=== PATIENT | female | born 1985 | race African-American/Black ===

== ENCOUNTER 2022-08-12 15:41 | Emergency (ER) | payer SELFPAY ==
[~2022-08-12] VITALS: Ht 170.2 cm; Wt 74.8 kg
[2022-08-12 15:54] VITALS: BP 123/66
[2022-08-12 16:40] LABS: BASOPHILS # (AUTO) 0.1 K/uL (0.00-0.22); EOSINOPHILS % (AUTO) 0.7 % (0.0-4.0); HEMATOCRIT 20.8 % (36-48); LYMPHOCYTES # (AUTO) 1.9 K/uL (2.5-16.5); LYMPHOCYTES % (AUTO) 29.1 % (20.5-51.1); MEAN CORPUSCULAR HEMOGLOBIN 20 pg (27-31); MEAN CORPUSCULAR HGB CONC 29 g/dL (33-37); MEAN CORPUSCULAR VOLUME 69.2 fL (80-94); MONOCYTES # (AUTO) 0.4 K/uL (0.8-1.0); MONOCYTES % (AUTO) 6.1 % (1.7-9.3); NEUTROPHILS % (AUTO) 63.1 % (42.2-75.2); PLATELET COUNT (AUTO) 397 K/uL (140-450); RED BLOOD CELL COUNT(AUTO) 3.01 MIL/uL (4.20-5.40); RED CELL DISTRIBUTION WIDTH 24.5 % (11.6-13.7); WHITE BLOOD COUNT (AUTO) 6.4 K/uL (4.8-10.8)
[2022-08-12 16:44] LABS: HEMOGLOBIN 6.1 g/dL (12.0-16.0)
[2022-08-12 16:54] LABS: ALBUMIN 3.7 g/dL (3.4-5.0); ANION GAP 11.4 (8-16); CARBON DIOXIDE 28.8 mmol/L (21-32); CREATININE 0.6 mg/dL (0.6-1.3); POTASSIUM 4.2 mmol/L (3.5-5.1); TOTAL BILIRUBIN 0.5 mg/dL (0.0-1.0)
--- NOTE | 2022-08-12 17:20 | NUR ---
US AT BEDSIDE
--- NOTE | 2022-08-12 19:33 | NUR ---
Pt report given to CYNTHIA Gunn Transfer of care at this time.
--- NOTE | 2022-08-12 20:25 | NUR ---
Consent signed per pt. agreeing to administration of blood. Blood has been type and crossmatched. Blood sent from blood bank. Information on unit of blood checked against patient wristband at bedside by two nurses. All information matches. Patient or responsible constitution party informed of potential complications associated with blood transfusion. Informed of possible transfusion reaction symptoms. Aware of need to notify nurse at once of itching, shortness of breath, flushing, feeling of impending doom, or other symptoms not previously present. Vital signs taken within 5 minutes prior to initiation of transfusion. RN will remain with patient for first 15 minutes of transfusion at which time vital signs will be re-assessed.
[2022-08-12] MEDS ORDERED: [UNRECOGNIZED DRUG - CODE] PO (21:09)
[2022-08-12] MEDS ORDERED: ACET-10509 PO (21:09)
[2022-08-12 21:15] LABS: APPEARANCE,URINE CLEAR (CLEAR); BILIRUBIN,URINE NEGATIVE (NEGATIVE); BLOOD, URINE NEGATIVE (NEGATIVE); COLOR,URINE AMBER (YELLOW); LEUKOCYTE ESTERASE ,URINE NEGATIVE (NEGATIVE); NITRITE, URINE NEGATIVE (NEGATIVE); UGLUCOSE NEGATIVE (NEGATIVE)
[2022-08-12 23:43] VITALS: BP 106/69
--- NOTE | 2022-08-12 23:44 | NUR ---
Patient discharged with v/s stable. Written and verbal after care instructions given and explained. Patient alert, oriented and verbalized understanding of instructions. Ambulatory with steady gait. All questions addressed prior to discharge. ID band removed. Patient advised to follow up with PMD. Rx of TYLENOL PLUS 1 given. Patient educated on indication of medication including possible reaction and side effects. Opportunity to ask questions provided and answered. dc also explained to family member. expresses clear understanding. no further questions or concerns.
== END 2022-08-12 23:44 | disposition home or self-care (01) ==
LOC: MED 15:41
DX: N93.9 Abnormal uterine and vaginal bleeding, unspecified (principal); D64.9 Anemia, unspecified
CPT/HCPCS: 36415; 36430; 76856; 80053; 81003; 81025; 85025; 86886; 86900; 86901; 86920; 99291; 99292; P9016; Q0092

== ENCOUNTER 2022-08-19 15:24 | Emergency (ER) | payer SELFPAY ==
[~2022-08-19] VITALS: Ht 158 cm; Wt 69.5 kg
[~2022-08-19 15:24] MED LIST: ACET-10509 PO; [UNRECOGNIZED DRUG - CODE] PO
[2022-08-19 15:47] VITALS: BP 103/72
--- NOTE | 2022-08-19 15:52 | NUR ---
PT AMB TO BED 6.
--- NOTE | 2022-08-19 16:25 | NUR ---
deng swabbed at this time
[2022-08-19 16:35] LABS: BASOPHILS # (AUTO) 0.1 K/uL (0.00-0.22); BASOPHILS % (AUTO) 1.2 % (0.0-2.0); EOSINOPHILS % (AUTO) 0.3 % (0.0-4.0); HEMATOCRIT 24.6 % (36-48); HEMOGLOBIN 7.4 g/dL (12.0-16.0); LYMPHOCYTES # (AUTO) 2.3 K/uL (2.5-16.5); LYMPHOCYTES % (AUTO) 24.2 % (20.5-51.1); MEAN CORPUSCULAR HEMOGLOBIN 21 pg (27-31); MEAN CORPUSCULAR HGB CONC 30 g/dL (33-37); MEAN CORPUSCULAR VOLUME 70.3 fL (80-94); MONOCYTES # (AUTO) 0.5 K/uL (0.8-1.0); MONOCYTES % (AUTO) 5.4 % (1.7-9.3); NEUTROPHILS # (AUTO) 6.5 K/uL (1.8-7.7); NEUTROPHILS % (AUTO) 68.9 % (42.2-75.2); PLATELET COUNT (AUTO) 566 K/uL (140-450); RED CELL DISTRIBUTION WIDTH 24.8 % (11.6-13.7); WHITE BLOOD COUNT (AUTO) 9.5 K/uL (4.8-10.8)
[2022-08-19] MEDS ORDERED: KETOROLAC 30 MG/ML VIAL IM ONE (16:50)
[2022-08-19] MEDS ORDERED: DICYCLOMINE HCL LIQUID 20 MG, ALUMINUM HYD/MAG/SIMETHICONE 30 ML, LIDOCAINE VISCOUS 2% ... PO ONE ×3 (16:50)
[2022-08-19 17:00] LABS: ALBUMIN 3.6 g/dL (3.4-5.0); ANION GAP 14.3 (8-16); CARBON DIOXIDE 26.4 mmol/L (21-32); CREATININE 0.6 mg/dL (0.6-1.3); POTASSIUM 3.7 mmol/L (3.5-5.1); TOTAL BILIRUBIN 0.7 mg/dL (0.0-1.0)
[2022-08-19] MEDS ORDERED: DICYCLOMINE HCL LIQUID 10 MG/5 ML UDC ONE (17:11)
[2022-08-19] MEDS ORDERED: ALUMINUM HYD/MAG/SIMETHICONE 30 ML UDC ONE (17:11)
[2022-08-19] MEDS ORDERED: KETOROLAC 30 MG/ML VIAL IVP ONE (17:25)
[2022-08-19 18:53] LABS: APPEARANCE,URINE CLEAR (CLEAR); BILIRUBIN,URINE NEGATIVE (NEGATIVE); BLOOD, URINE NEGATIVE (NEGATIVE); COLOR,URINE YELLOW (YELLOW); LEUKOCYTE ESTERASE ,URINE NEGATIVE (NEGATIVE); NITRITE, URINE NEGATIVE (NEGATIVE); UGLUCOSE NEGATIVE (NEGATIVE)
--- NOTE | 2022-08-19 19:26 | NUR ---
Pt c/o dizziness, weakness, diffuse abdominal cramping x2 days. Denies any vaginal bleeding, N/V. Denies fevers/ chills. Hx of uterine fibroids
[2022-08-19 19:48] VITALS: BP 107/62
[2022-08-19] MEDS ORDERED: IBUP-1842 PO (21:03)
[2022-08-19] MEDS ORDERED: TRAM50TA3 PO ×2 (21:03→21:18)
--- NOTE | 2022-08-19 21:24 | NUR ---
Patient discharged with v/s stable. Written and verbal after care instructions given and explained. Patient alert, oriented and verbalized understanding of instructions. Ambulatory with steady gait. All questions addressed prior to discharge. ID band removed. Patient advised to follow up with PMD. Rx of TRAMADOL, AND IBUPROFEN given. Patient educated on indication of medication including possible reaction and side effects. Opportunity to ask questions provided and answered.
== END 2022-08-19 21:24 | disposition home or self-care (01) ==
LOC: MED 15:24
DX: R19.07 Generalized intra-abdominal and pelvic swelling, mass and lump (principal); Z20.822 Contact with and (suspected) exposure to COVID-19
CPT/HCPCS: 36415; 71045; 74177; 80053; 81003; 81025; 83690; 85025; 87426; 96374; 99285; J1885; Q9967